=== PATIENT | female | born 1930 | race Caucasian/White ===

== ENCOUNTER → 2019-04-02 10:51 | Outpatient (CLI) | payer MEDICARE, BC, MEDICAID ==
[2013-04-08 14:34] VITALS: BMI 23.6
[~2019-04-02 10:51] MED LIST: ATIVAN0.5 MG PO; BENADRYL25 MG PO; CALTRATE-600600 MG PO; DESYREL50 MG PO; FLEXERIL5 MG PO; LOPRESSOR50 MG PO; NAMENDA10 MG PO; NORCO 10/325 TA1 TA1 PO
== END | disposition home or self-care (01) ==
LOC: D.OPS 10:51
PROVIDERS: ATTEND Family Medicine
DX: D64.9 Anemia, unspecified (principal)